=== PATIENT | female | born 1960 | race Hispanic/Latino ===

== ENCOUNTER 2016-07-24 12:55 | Outpatient (CLI) | payer OTHER ==
[2016-07-24 15:57] LABS: Hemoglobin A1c 6.5 % (4.0-6.0)
[2016-07-24 16:24] LABS: Anion Gap 15 mmol/L (10-20); BUN (Urea Nitrogen) 10 mg/dL (9.8-20.1); Calc. Creatinine Clearance 0 mL/min (70-130); Calcium 10.6 mg/dL (7.8-10.44); Carbon Dioxide 24 mmol/L (22-29); Chloride 105 mmol/L (98-107); Estimated GFR-MDRD Greater than 90; LDL Cholesterol, Calculated 73 mg/dL
== END 2016-07-24 12:56 | disposition home or self-care (01) ==
LOC: NAVSJIPCSP 12:55
PROVIDERS: ATTEND Internal Medicine
DX: E11.65 Type 2 diabetes mellitus with hyperglycemia (principal); I10 Essential (primary) hypertension; E78.00 Pure hypercholesterolemia, unspecified
CPT/HCPCS: 36415; 80048; 80061; 83036

== ENCOUNTER 2017-02-05 09:08 | Outpatient (CLI) | payer OTHER ==
[2017-02-05 12:42] LABS: Hemoglobin A1c 6.5 % (4.0-6.0)
== END 2017-02-05 09:09 ==
LOC: NAVSJIPCSP 09:08
PROVIDERS: ATTEND Internal Medicine
DX: E11.9 Type 2 diabetes mellitus without complications (principal)
CPT/HCPCS: 36415; 83036